=== PATIENT | female | born 2000 | race Caucasian/White ===

== ENCOUNTER → 2019-12-10 | Outpatient (CLI) | payer OTHER | LOC: OD 11:47 | PROVIDERS: ATTEND Family Medicine | DX: Z32.01 Encounter for pregnancy test, result positive (principal) | CPT/HCPCS: 81025 ==

== ENCOUNTER 2020-07-17 10:21 | Inpatient (IN) | payer OTHER ==
[2020-07-17 10:51] LABS: APPEARANCE,URINE SLIGHTLY-CLOUDY; BILIRUBIN,URINE NEGATIVE (NEGATIVE); COLOR,URINE YELLOW; GLUCOSE, URINE NEGATIVE (NEGATIVE); KETONES,URINE NEGATIVE (NEGATIVE); LEUKOCYTE ESTERASE,URINE MODERATE (NEGATIVE); NITRITE,URINE NEGATIVE (NEGATIVE); PROTEIN,URINE NEGATIVE (NEGATIVE); URINE SPECIFIC GRAVITY 1.014; UROBILINOGEN,URINE NEGATIVE mg/dL (<2.0)
[2020-07-17] MEDS ORDERED: RINGERS SOLUTION,LACTATED 1,000 ML IV ONE (11:00)
[2020-07-17] MEDS ORDERED: RINGERS SOLUTION,LACTATED 1,000 ML IV PRN (11:00)
[2020-07-17 11:07] LABS: URINE AMPHETAMINES SCREEN NEGATIVE; URINE BARBITURATES SCREEN NEGATIVE; URINE BENZODIAZEPINES SCREEN NEGATIVE; URINE COCAINE SCREEN NEGATIVE; URINE METHADONE SCREEN NEGATIVE; URINE PHENCYCLIDINE SCREEN NEGATIVE
[2020-07-17 11:29] LABS: URINE MARIJUANA (THC) SCREEN UNCONFIRMED POSITIVE
[2020-07-17] MEDS ORDERED: OXYTOCIN/0.9 % SODIUM CHLORIDE 30 UNIT/500 ML RTUINJ IV PRN (11:40)
[2020-07-17] MEDS ORDERED: OXYTOCIN/0.9 % SODIUM CHLORIDE 30 UNIT/500 ML RTUINJ ONE (11:46)
[2020-07-17 11:49] LABS: ABSOLUTE BASOPHILS # (AUTO) 0.1 10^3/uL (0.0-0.2); ABSOLUTE EOSINOPHILS # (AUTO) 0.1 10^3/uL (0.0-0.6); ABSOLUTE LYMPHOCYTES (AUTO) 1.9 10^3/uL (0.5-4.7); ABSOLUTE MONOCYTES (AUTO) 0.9 10^3/uL (0.1-1.4); ABSOLUTE NEUT (AUTO) 7.6 10^3/uL (1.7-8.2); BASOPHILS % (AUTO) 0.9 % (0-2); EOSINOPHILS % (AUTO) 1.4 % (0-6); HEMATOCRIT 32.2 % (36.0-47.0); HEMOGLOBIN 10.8 g/dL (12.0-15.5); LYMPHOCYTES % (AUTO) 18.1 % (13-45); MEAN CORPUSCULAR HEMOGLOBIN 26.4 pg (27.0-33.4); MEAN CORPUSCULAR HGB CONC 33.5 g/dL (32.0-36.0); MEAN CORPUSCULAR VOLUME 79 fl (80-97); MONOCYTES % (AUTO) 8.4 % (3-13); PLATELET COUNT 153 10^3/uL (150-450); RED BLOOD COUNT 4.09 10^6/uL (3.72-5.28); RED CELL DISTRIBUTION WIDTH 15.1 % (11.5-14.0); SEGMENTED NEUTROPHILS % (AUTO) 71.2 % (42-78); TOTAL CELLS COUNTED % (AUTO) 100 %; WHITE BLOOD COUNT 10.7 10^3/uL (4.0-10.5)
[2020-07-17] MEDS ORDERED: MISOPROSTOL 0.2 MG TABLET ONE (11:56)
[2020-07-17] MEDS ORDERED: EPHEDRINE SULFATE INJ 50 MG/1 ML AMPULE ONE (11:57)
[2020-07-17] MEDS ORDERED: ROPIVACAINE HCL 0.2% INJ/PF (2 MG/ML) 20 ML SDV ONE (11:57)
[2020-07-17] MEDS ORDERED: LIDOCAINE 1% INJ-PF (10 MG/ML) 30 ML SDV ONE (11:57)
[2020-07-17] MEDS ORDERED: FENTANYL/BUPIVACAINE/NS/PF 0 MCG/0 ML RTUINJ EPI ONE (11:57)
[2020-07-17] MEDS ORDERED: NALBUPHINE HCL INJ 10 MG/1 ML AMPULE ONE (13:56)
[2020-07-17] MEDS ORDERED: NALBUPHINE HCL INJ 10 MG/1 ML AMPULE INJ ONE (13:57)
--- NOTE | 2020-07-17 15:42 | Admission Physical ---
Datetime Report Generated by CPN: 07/17/2020 15:41 CURRENT ADMISSION Chief Complaint: Uterine Contractions; Suspected Ruptured Membranes Indication for Induction: Not Applicable Admit Impression : Term, Intrauterine Admit Plan: Admit to Unit; Initiate Labor Protocol ALLERGIES Medication Allergies: No Medication Allergies: No Known Allergies (07/17/2020) Latex: No Latex Allergies Food Allergies: n/a Environmental Allergies: n/a OBSTETRICAL HISTORY EDC: 07/13/2020 00:00 : 3 Para: 2 Term: 2 : 0 SAB: 0 IAB: 0 Ectopic: 0 Livin Cesareans: 0 VBACs: 0 Multiple Births: 0 Gestational Diabetes: No Rh Sensitization: No Incompetent Cervix: No HARJINDER: No Infertility: No ART Treatment: No Uterine Anomaly: No IUGR: No Hx Previous C/S: No Macrosomia: No Hx Loss/Stillborn: No PIH: Yes Hx : No Placenta Previa/Abruption: No Depression/PP Depression: No PTL/PROM: No Post Hemorrhage: No Current Procedures: Ultrasound; NST Obstetrical History Comments: 2014 IOL 37 weeks for pre-e G2- 2016 7#3 oz G3- current SEE RECORDS Alcohol: No Marijuana : Yes Marijuana Frequency: 3 - 5 Times Per Week Last Used: 07/16/2020 00:00 Previous Treatment: None Cocaine: No Other Illicit Drugs: No Cigarettes: Never Smoker. 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 Surgery: No Heart Disease: No Hosp/Surgery: Yes Autoimmune Disorder: No Anesthetic Complications: No Kidney Disease: No Abnormal Pap Smear: Yes Neuro/Epilepsy: No Psychiatric Disorders: No Other Medical Diseases: No Hepatitis/Liver Disease: No Significant Family History: No Varicosities/Phlebitis: No Trauma/Violence : No Thyroid Dysfunction: No Medical History Comments: LGSil pap 2020- needs repeat pap PP, childbirth x2, INFECTIOUS HISTORY Gonorrhea: No Genital Herpes: No Chlamydia: No Tuberculosis: No Syphilis: No Hepatitis: No HIV/AIDS Exposure: No Rash or Viral Illness: No HPV: No PHYSICAL EXAM General: Normal HEENT: Normal Neurologic: Normal Thyroid: Normal Heart: Normal Lungs: Normal Breast: Deferred Back: Normal Abdomen: Normal Genitourinary Exam: Normal Extremities: Normal DTRs: Normal Pelvic Type: Adequate FETUS A EGA: 40.4 PLANS FOR LABOR AND DELIVERY Labor and Delivery: None Pain Management: Epidural Feeding Preference: Formula Benefit of Breast Feed Discussed: Yes Circumcision: Yes INFORMED CONSENT Signature: with User ID: [email or web address]
[2020-07-17] MEDS ORDERED: ACETAMINOPHEN WITH CODEINE #3 TABLET ONE (15:49)
[2020-07-17] MEDS ORDERED: IBUPROFEN 800 MG TABLET ONE (15:49)
[2020-07-17] MEDS ORDERED: MAGNESIUM HYDROXIDE SUSP 30 ML UDCUP PO PRN (17:14)
[2020-07-17] MEDS ORDERED: PROMETHAZINE HCL 25 MG SUPP.RECT PR PRN (17:14)
[2020-07-17] MEDS ORDERED: PROMETHAZINE HCL INJ 25 MG/1 ML VIAL IV PRN (17:14)
[2020-07-17] MEDS ORDERED: DIPHENHYDRAMINE HCL 25 MG CAPSULE PO PRN (17:14)
[2020-07-17] MEDS ORDERED: MEASLES,MUMPS&RUBELLA VACC/PF 0.5 ML VIAL SUBCUT PRN (17:14)
[2020-07-17] MEDS ORDERED: NA PHOS,M-B/NA PHOS,DI-BA (ADULT) 133 ML ENEMA PR PRN (17:14)
[2020-07-17] MEDS ORDERED: PROMETHAZINE HCL 25 MG TABLET PO PRN (17:14)
[2020-07-17] MEDS ORDERED: ZOLPIDEM TARTRATE 5 MG TABLET PO PRN (17:14)
[2020-07-17] MEDS ORDERED: ACETAMINOPHEN 650 MG SUPP.RECT PR PRN (17:14)
[2020-07-17] MEDS ORDERED: GLYCERIN/WITCH HAZEL LEAF 1 EACH MED..WIPE TP PRN (17:14)
[2020-07-17] MEDS ORDERED: DIBUCAINE 1% OINTMENT 28 GM TP PRN (17:14)
[2020-07-17] MEDS ORDERED: ACETAMINOPHEN WITH CODEINE #3 TABLET PO PRN ×2 (17:14)
[2020-07-17] MEDS ORDERED: PSEUDOEPHEDRINE HCL 30 MG TABLET PO PRN (17:14)
[2020-07-17] MEDS ORDERED: DIPH/PERTUSS(ACELL)/TETANUS VAC/PF 0.5 ML SYR (>=10YO) IM PRN (17:14)
[2020-07-17] MEDS ORDERED: BENZOCAINE/MENTHOL AEROSOL SPRAY 56 ML TOP PRN (17:14)
--- NOTE | 2020-07-17 18:50 | Delivery Summary ---
Del Sum A-C Datetime Report Generated by CPN: 07/17/2020 18:50 DELIVERY PERSONNEL DELIVERY PERSONNEL: [id number] Delivery Doctor:: Yoel Carranza MD Labor and Delivery Nurse:: Candice Drake RNelevator erector Nurse:: Dayday Delong RN Nursery Nurse:: Kaye Luna RN Nursery Nurse:: JANNIE Jalloh Manager Actuarial/SALES PROJECT ADMINISTRATOR: Bernadette Villalpando, ST MATERNAL INFORMATION Delivery Anesthesia: None Medications After Delivery: Pitocin 30 Units in 500ml NS/D5W Delivery QBL: 100 Maternal Complications: None LABOR SUMMARY EDC: 07/13/2020 00:00 No. Babies in Womb: 1 Attempted: No Labor Anesthesia: IV Sedation LABOR INFORMATION Reason for Induction: Not Applicable Onset of Labor: 07/17/2020 03:00 Complete Dilatation: 07/17/2020 15:15 Oxytocin: Augmentation Group B Beta Strep: Negative Antibiotics # of Doses: 0 Name of Antibiotic Given: N/A Steroids Given: None Reason Steroids Not Administered: Not Applicable MEMBRANES Membranes Rupture Method: Spontaneous Rupture of Membranes: 07/17/2020 03:00 Length of Rupture (hr): 12.58 Amniotic Fluid Color: Clear Amniotic Fluid Amount: Small Amniotic Fluid Odor: Normal STAGES OF LABOR Stage 1 hr: 12 Stage 1 min: 15 Stage 2 hr: 0 Stage 2 min: 20 Stage 3 hr: 0 Stage 3 min: 4 Total Time in Labor hr: 12 Total Time in Labor min: 39 VAGINAL DELIVERY Episiotomy: None Laceration #1: None Laceration Extension #1: N/A Laceration Repair: Not Applicable Sponge Count Correct: Yes Sharps Count Correct: N/A CSECTION DELIVERY Primary Indication: N/A Secondary Indication: N/A CSection Incidence: N/A Labor: N/A Elective: N/A CSection Incision: N/A BABY A INFORMATION Delivery Date/Time: 07/17/2020 15:35 Method of Delivery: Vaginal Nurse Controlled Delivery: No Born in Route : No : N/A Forceps: N/A Vacuum Extraction: N/A Shoulder Dystocia : No PRESENTATION/POSITION BABY A Presentation: Cephalic Cephalic Presentation: Vertex Vertex Position: Left Occipital Anterior Breech Presentation: N/A PLACENTA INFORMATION BABY A Placenta Delivery Time : 07/17/2020 15:39 Placenta Method of Delivery: Spontaneous Placenta Status: Delivered SCORES BABY A Heart Rate 1 min: >100 bpm Resp Effort 1 min: Good Cry Reflex Irritability 1 min: Cough or Sneeze or Pulls Away Muscle Tone 1 min: Active Motion Color 1 min: Body [place], Extremities Blue Resuscitation Effort 1 min: Tactile Stimulation SCORE 1 MIN: 9 Heart Rate 5 min: >100 bpm Resp Effort 5 min: Good Cry Reflex Irritability 5 min: Cough or Sneeze or Pulls Away Muscle Tone 5 min: Active Motion Color 5 min: Body [place], Extremities Blue Resuscitation Effort 5 min: Tactile Stimulation SCORE 5 MIN: 9 INFANT INFORMATION BABY A Gestational Age at Delivery: 40.4 Gestational Status: Full Term- 39- 40.6 Weeks Outcome : Liveborn Condition : Stable Infant Sex: Male IDENTIFICATION BABY A Infant Verification Date/Time: 07/17/2020 15:49 ID Band Number: [id number] Mother's Name Verified: Yes Infant RN Verifying : Trev Jasso RN ; FREDERIC Sanchez WEIGHT/LENGTH BABY A Birthweight (gm): 3951 Weight (lb): 8 Infant Weight (oz): 11 Length (in): 21.75 Length (cm): 55.25 CORD INFORMATION BABY A No. Cord Vessels: 3 Nuchal Cord : N/A Cord Blood Taken: Yes-For Storage (Mom's Blood type +) Suction: None ASSESSMENT BABY A Complications: None Infant Complications- Other: terminal mec Physical Findings at Delivery: Within Normal Limits Infant Respirations: Appears Normal Skin to Skin: Yes Carpet Journeyman/ALS Called : No Care By: Yeimi,RN Transferred To: Remains with Mother BABY B INFORMATION : N/A SIGNATURES Signature: with User ID: [email or web address]
--- NOTE | 2020-07-17 18:50 | Birth Certificate Data ---
Cert Data Datetime Report Generated by CPN: 07/17/2020 18:50 CERTIFICATE DATA Delivery Provider: Yoel Carranza MD (07/17/2020 10:24:Dayday Delong RN) 47a. Care: Yes (07/17/2020 10:24:Candice Drake RN) 47b. Date of First Visit: 01/02/2020 00:00 (07/17/2020 10:24:Aure Jasso RN) 47c. Date of Last Visit: 07/16/2020 00:00 (07/17/2020 10:24:Aure Jasso RN) 47d. Number of Visits: 10 (07/17/2020 10:24:Aure Jasso RN) 48a. Number of Prev Live Births: 2 (07/17/2020 10:24:Aure Jasso RN) 48b. Now Livin (07/17/2020 10:24:Candice Drake RN) 48c. Live Births Now : 0 (07/17/2020 10:24:QS system process) 48d. Date of Last Live : 08/29/2016 00:00 (07/17/2020 10:24:Candice Drake RN) 48e. Losses: 0 (07/17/2020 10:24:Candice Drake RN) RISK FACTORS IN THIS 49a. Diabetes: No (07/17/2020 10:24:Candice Drake RN) 49b. Hypertension: No (07/17/2020 10:24:Candice Drake RN) 49c. Previous Births: 0 (07/17/2020 10:24:Candice Drake RN) 49d. Stillborns: No (07/17/2020 10:24:Aure Jasso RN) 49d. IUGR: No (07/17/2020 10:24:Candice Drake RN) 49e. Infertility Treatment: No (07/17/2020 10:24:Candice Drake RN) 49f. Previous Cesareans: 0 (07/17/2020 10:24:Candice Drake RN) Mother's Height 50b. Height Inches: 60 (07/17/2020 12:02:QS system process) Mother's Weight 51a. Pre- Weight (lbs): 130 (07/17/2020 10:24:Aure Jasso RN) 51b. Weight at Delivery (lbs): 207 (07/17/2020 12:02:QS system process) 52. Dt Last Normal Menses Began: 10/23/2019 00:00 (07/17/2020 10:24:Aure Jasso RN) Infections Present/Treated 53a. Gonorrhea: No (07/17/2020 10:24:Candice Drake RN) Results this Hospital Visit : Negative (07/17/2020 10:24:Aure Jasso RN) 53b. Syphilis: No (07/17/2020 10:24:Candice Drake RN) 53c. Chlamydia: No (07/17/2020 10:24:Candice Drake RN) Results this Hospital Visit: Negative (07/17/2020 10:24:Aure Jasso RN) 53d. Hepatitis B: No (07/17/2020 10:24:Aure Jasso RN) Results this Hospital Visit: Negative (07/17/2020 10:24:Aure Jasso RN) 53e. Hepatitis C: Negative (07/17/2020 10:24:Aure Jasso RN) 53h. Mother Tested for HBsAG: Yes (07/17/2020 10:24:Aure Jasso RN) 53i. Date Tested: 01/02/2020 00:00 (07/17/2020 10:24:Aure Jasso RN) 53j. Test Result: Negative (07/17/2020 10:24:Aure Jasso RN) Obstetric Procedures 54a, b, c. Obstetric Procedures: Ultrasound; NST (07/17/2020 10:24:Aure Jasso RN) Cigarette Smoking Cigarette Smoking: Never Smoker. [id number] (07/17/2020 10:24:Candice Drake RN) Onset of Labor 56a. PROM >12 Hrs: 12.58 (07/17/2020:QS system process) 56b. Precipitous Labor <3 Hrs: 12 (07/17/202024:QS system process) 56c. Prolonged Labor > 20 Hrs: 12 (07/17/202024:QS system process) 57a. Induction of Labor: Augmentation (07/17/2020 10:24:Dayday Delong RN) 57c. Non-Vertex Presentation A: Vertex (07/17/2020 10:24:Dayday Delong RN) 57d. Steroids - Lung Mat: None (07/17/2020 10:24:Dayday Delong RN) 57d. Steroids - Lung Mat: Not Applicable (07/17/2020 10:24:Dayday Delong RN) 57g. Moderate/Heavy Meconium: Clear (07/17/2020 10:24:Aure Jasso RN) 57h. Intolerance of Labor: N/A (07/17/2020 10:24:Dayday Delong RN) : N/A (07/17/2020 10:24:Dayday Delong RN) 57i. Epidural/Spinal Anesthesia: IV Sedation (07/17/2020 10:24:Dayday Delong RN) Method of Delivery 58a. Forceps - Unsuccessful A: N/A (07/17/2020 10:24:Dayday Delong RN) 58b. Vacuum - Unsuccessful A: N/A (07/17/2020 10:24:Aure Jasso RN) 58c. Presentation at 58c. Presentation at - A : Vertex (07/17/2020 10:24:Dayday Delong RN) 58c. Presentation at - A : N/A (07/17/2020 10:24:Aure Jasso RN) 58c. Presentation at - A : Cephalic (07/17/2020 10:24:Aure Jasso RN) Final Route and Method of Del 58d. Baby A Route/Delivery: Vaginal (07/17/2020 10:24:Dayday Delong RN) 58e. Trial of Labor Attempted: No (07/17/2020 10:24:Dayday Delong RN) 58e. Trial of Labor Attempted A: N/A (07/17/2020 10:24:Dayday Delong RN) 58e. Trial of Labor Attempted B: N/A (07/17/2020 10:24:Dayday eDlong RN) Maternal Morbidity 59b. 3rd or 4th Degree Lacs: None (07/17/2020 10:24:Yoel Carranza MD ([facility])) 59b. 3rd or 4th Degree Lacs: N/A (07/17/2020 10:24:Aure Jasso RN) Birthweight Baby A: 3951 (07/17/2020 10:24:Mary Jane Salguero RN) 60a. Pounds : 8 (07/17/2020 10:24:QS system process) 60b. Ounces: 11 (07/17/2020 10:24:QS system process) 61. GA at Delivery Baby A: 40.4 (07/17/2020 10:24:Dayday Delong RN) : Full Term- 39- 40.6 Weeks (07/17/2020 10:24:QS system process) 62a. 5 Minute Baby A: 9 (07/17/2020 10:24:QS system process)
[2020-07-17] MEDS: IBUPROFEN 800 MG TABLET PO SCH (21:53)
[2020-07-17] MEDS: FAMOTIDINE 20 MG TABLET PO SCH (21:53)
[2020-07-18] MEDS: IBUPROFEN 800 MG TABLET PO SCH ×2 (05:17→14:17)
[2020-07-18 08:14] VITALS: BP 104/64
[2020-07-18 09:18] LABS: HEMATOCRIT 34.7 % (36.0-47.0); HEMOGLOBIN 11.5 g/dL (12.0-15.5); MEAN CORPUSCULAR HEMOGLOBIN 26.1 pg (27.0-33.4); MEAN CORPUSCULAR HGB CONC 33.1 g/dL (32.0-36.0); MEAN CORPUSCULAR VOLUME 79 fl (80-97); PLATELET COUNT 169 10^3/uL (150-450); WHITE BLOOD COUNT 12.1 10^3/uL (4.0-10.5)
[2020-07-18] MEDS: FERROUS SULFATE 325 MG TABLET PO SCH ×3 (09:27→17:18)
[2020-07-18] MEDS: DOCUSATE SODIUM 100 MG CAPSULE PO SCH ×3 (09:27→17:18)
[2020-07-18] MEDS: FAMOTIDINE 20 MG TABLET PO SCH (09:29)
[2020-07-18] MEDS ORDERED: SENNOSIDES/DOCUSATE 8.6-50 MG 1 EACH TABLET PO SCH (10:00)
[2020-07-18] MEDS ORDERED: PRENATAL VITAMIN W DHA CAPSULE PO SCH (10:00)
--- NOTE | 2020-07-18 11:06 | PDOC DISCHARGE SUMMARY ---
Impression - Admit/DC Date/PCP Admission Date/Primary Care Provider: 07/17/20 10:58 AURELIO CABRAL MD Discharge Date: 07/18/20 - Discharge Diagnosis (1) Active labor at term Is this a current diagnosis for this admission?: Yes (2) Normal vaginal delivery Is this a current diagnosis for this admission?: Yes - Additional Information Discharge Diet: Regular Discharge Activity: Balance Activity w/Rest, Pelvic Rest Referrals: [facility] [Provider Group] (Please call and schedule a 4 week f/u at [facility]. ) Prescriptions: Ibuprofen [Motrin 800 mg Tablet] 800 mg PO Q8HP PRN #60 tablet PRN Reason: Home Medications: Vit No.130/Iron/Folic [ Tablet] 1 each PO DAILY 07/17/20 Ibuprofen [Motrin 800 mg Tablet] 800 mg PO Q8HP PRN #60 tablet 07/18/20 Hospital Course 59. Maternal Morbidity (serious complications experinced by the mother associated with labor and delivery: None of the above Results Laboratory Results: WBC 12.1 10^3/uL (4.0-10.5) H 07/18/20 09:04 RBC 4.40 10^6/uL (3.72-5.28) 07/18/20 09:04 Hgb 11.5 g/dL (12.0-15.5) L 07/18/20 09:04 Hct 34.7 % (36.0-47.0) L 07/18/20 09:04 MCV 79 fl (80-97) L 07/18/20 09:04 MCH 26.1 pg (27.0-33.4) L 07/18/20 09:04 MCHC 33.1 g/dL (32.0-36.0) 07/18/20 09:04 RDW 15.0 % (11.5-14.0) H 07/18/20 09:04 Plt Count 169 10^3/uL (150-450) 07/18/20 09:04 Lymph % (Auto) 18.1 % (13-45) 07/17/20 11:28 [place] % (Auto) 8.4 % (3-13) 07/17/20 11:28 Eos % (Auto) 1.4 % (0-6) 07/17/20 11:28 Baso % (Auto) 0.9 % (0-2) 07/17/20 11:28 Absolute Neuts (auto) 7.6 10^3/uL (1.7-8.2) 07/17/20 11:28 Absolute Lymphs (auto) 1.9 10^3/uL (0.5-4.7) 07/17/20 11:28 Absolute Monos (auto) 0.9 10^3/uL (0.1-1.4) 07/17/20 11:28 Absolute Eos (auto) 0.1 10^3/uL (0.0-0.6) 07/17/20 11:28 Absolute Basos (auto) 0.1 10^3/uL (0.0-0.2) 07/17/20 11:28 Seg Neutrophils % 71.2 % (42-78) 07/17/20 11:28 Urine Color YELLOW 07/17/20 10:32 Urine Appearance SLIGHTLY-CLOUDY 07/17/20 10:32 Urine pH 7.0 (5.0-9.0) 07/17/20 10:32 Ur Specific [place] 1.014 07/17/20 10:32 Urine Protein NEGATIVE mg/dL (NEGATIVE) 07/17/20 10:32 Urine Glucose (UA) NEGATIVE mg/dL (NEGATIVE) 07/17/20 10:32 Urine Ketones NEGATIVE mg/dL (NEGATIVE) 07/17/20 10:32 Urine Blood NEGATIVE (NEGATIVE) 07/17/20 10:32 Urine Nitrite NEGATIVE (NEGATIVE) 07/17/20 10:32 Urine Bilirubin NEGATIVE (NEGATIVE) 07/17/20 10:32 Urine Urobilinogen NEGATIVE mg/dL (<2.0) 07/17/20 10:32 Ur Leukocyte Esterase MODERATE (NEGATIVE) H 07/17/20 10:32 Urine Ascorbic Acid NEGATIVE (NEGATIVE) 07/17/20 10:32 Membranes Rupture POSITIVE (NEGATIVE) H 07/17/20 10:32 Urine Opiates Screen NEGATIVE 07/17/20 10:32 Urine Methadone Screen NEGATIVE 07/17/20 10:32 Ur Barbiturates Screen NEGATIVE 07/17/20 10:32 Ur Phencyclidine Scrn NEGATIVE 07/17/20 10:32 Ur Amphetamines Screen NEGATIVE 07/17/20 10:32 U Benzodiazepines Scrn NEGATIVE 07/17/20 10:32 Urine Cocaine Screen NEGATIVE 07/17/20 10:32 U Marijuana (THC) Screen UNCONFIRMED POSITIVE 07/17/20 10:32 Blood Type A POSITIVE 07/17/20 11:28 Antibody Screen NEGATIVE 07/17/20 11:28 Plan Plan of Treatment: follow up in 4 weeks at [facility] for post check
[2020-07-18] MEDS ORDERED: INFLUENZA QUAD (6MOS+) 2020-21 VAC 0.5 ML SYR IM ONE (13:45)
== END 2020-07-18 17:45 | disposition home or self-care (01) | DRG 807 ==
LOC: LC 10:21 → LR 10:58 → 2S 18:00
PROVIDERS: ADMIT Obstetrics & Gynecology Gynecology; ATTEND Obstetrics & Gynecology Gynecology
PROC: 10E0XZZ Delivery of Products of Conception, External Approach (ICD-10-PCS; principal; 2020-07-17)
DX: O99.324 Drug use complicating childbirth (principal); Z37.0 Single live birth; F12.90 Cannabis use, unspecified, uncomplicated; Z3A.40 40 weeks gestation of pregnancy
CPT/HCPCS: 36415; 80307; 80349; 81005; 84112; 85025; 85027; 86592; 86850; 86900; 86901; 90471; 90686; G0008; G0480; J2300; J2590; J2795; J3010; J3490